=== PATIENT | female | born 1985 | race Caucasian/White ===

== ENCOUNTER → 2017-07-22 | Outpatient (CLI) | payer BC ==
--- NOTE | 2017-07-22 16:11 | CT ---
EXAMINATION TYPE: CT sinus wo con DATE OF EXAM: 07/22/2017 COMPARISON: CT facial bones March 10, 2011. HISTORY: chronic sinusitis/pressure. Pain in forehead and cheek per patient. CT DLP: 693 mGycm. Automated Exposure Control for Dose Reduction was Utilized. TECHNIQUE: CT scan of the sinuses is performed without contrast, axial images are obtained, coronal r eformatted images are also reviewed. FINDINGS: The paranasal sinuses including the frontal, ethmoid, sphenoid, and maxillary sinuses bila terally are well-aerated without abnormal opacification. The ostiomeatal complex is patent bilateral ly on the coronal images. Nasal septum remains deviated to left of midline. Visualized portion of mastoid air cells show no abnormal opacification. The globes are intact bilate rally. IMPRESSION: The sinuses are clear on current study and the ostiomeatal complex is patent bilaterally.
== END | disposition home or self-care (01) ==
LOC: RADCTMAIN 15:22
PROVIDERS: ATTEND Family Medicine
DX: J32.9 Chronic sinusitis, unspecified (principal)
CPT/HCPCS: 70486

== ENCOUNTER → 2018-02-25 | Outpatient (CLI) | payer BC | END | disposition home or self-care (01) | LOC: LABWHC1 11:04 | PROVIDERS: ATTEND Otolaryngology | DX: J30.89 Other allergic rhinitis (principal) | CPT/HCPCS: 36415; 86001 ==

== ENCOUNTER → 2021-01-09 | Outpatient (CLI) | payer BC ==
--- NOTE | 2021-01-11 11:21 | MM ---
Reason for exam: screening (asymptomatic). Baseline mammogram. History: Family history of breast cancer in maternal aunt at age 70. Took hormonal contraceptives for 3 years. Physical Findings: Nurse did not find any significant physical abnormalities on exam. MG 3D Screening Mammo W/Cad Bilateral CC, MLO, and XCCL view(s) were taken. The breast tissue is heterogeneously dense. This may lower the sensitivity of mammography. ASSESSMENT: Negative, BI-RAD 1 RECOMMENDATION: Routine screening mammogram of both breasts in 1 year.
== END | disposition home or self-care (01) ==
LOC: RADMAMWWP 07:07
PROVIDERS: ATTEND Obstetrics & Gynecology
DX: Z12.31 Encounter for screening mammogram for malignant neoplasm of breast (principal); Z80.3 Family history of malignant neoplasm of breast
CPT/HCPCS: 77063; 77067

== ENCOUNTER → 2021-02-06 | Outpatient (CLI) | payer BC ==
[2021-02-06 15:43] LABS: Basophils % (A) 1 %; Eosinophils # (A) 0.2 k/uL (0-0.7); Eosinophils % (A) 7 %; HCT 38.3 % (34.0-46.0); Lymphocytes # (A) 0.3 k/uL (1.0-4.8); Lymphocytes % (A) 10 %; MCH 30.4 pg (25.0-35.0); MCHC 34.1 g/dL (31.0-37.0); MCV 89.2 fL (80.0-100.0); Mean Platelet Volume 7.5; Monocytes # (A) 0.3 k/uL (0-1.0); Monocytes % (A) 9 %; Neutrophils # (A) 2.4 k/uL (1.3-7.7); Neutrophils % (A) 71 %; Platelet Count 208 k/uL (150-450); RBC 4.29 m/uL (3.80-5.40); RDW 12.9 % (11.5-15.5); WBC 3.4 k/uL (3.8-10.6)
== END | disposition home or self-care (01) ==
LOC: LABPAT 14:47
PROVIDERS: ATTEND Obstetrics & Gynecology
DX: Z01.812 Encounter for preprocedural laboratory examination (principal); N94.6 Dysmenorrhea, unspecified; N92.0 Excessive and frequent menstruation with regular cycle
CPT/HCPCS: 36415; 85025

== ENCOUNTER 2021-02-11 05:42 | Day surgery (SDC) | payer BC ==
[2021-02-07 14:24] VITALS: BMI 23.3
[~2021-02-11 05:42] MED LIST: Pre Op ABX Message 1 EACH MISC MISCELLANE ONE
[2021-02-11] MEDS ORDERED: LIDOCAINE 1% (10MG/ML) FOR IV START INTRADERMA PRN (05:43)
[2021-02-11] MEDS ORDERED: LACTATED RINGERS 1,000 ML IV SCH (05:43)
[2021-02-11] MEDS ORDERED: MIDAZOLAM 2 MG/2 ML VIAL IV PRN (05:43)
[2021-02-11] MEDS ORDERED: DEXAMETHASONE SOD PHOSPHATE 4 MG/ML 1 ML VIAL IV ONE (05:43)
[2021-02-11] MEDS ORDERED: ONDANSETRON 4 MG/2 ML VIAL IVP ONE (05:43)
[2021-02-11] MEDS ORDERED: PROPOFOL 10 MG/ML 20 ML VIAL IV ONE (06:55)
[2021-02-11] MEDS ORDERED: LIDOCAINE 1% INJ 10MG/ML (20 ML MDV) ONE (06:55)
[2021-02-11] MEDS ORDERED: KETOROLAC 15 MG/ML 1 ML VIAL ONE (06:55)
[2021-02-11 07:33] VITALS: TEMP 97.9
--- NOTE | 2021-02-11 07:36 | P.OP ---
Date of Procedure: 02/11/21 Preoperative Diagnosis: Dysmenorrhea, hypermenorrhea. Postoperative Diagnosis: Same Procedure(s) Performed: Hysteroscopy, D&C, NovaSure endometrial ablation. Anesthesia: EMILIANOA Surgeon: Brigida Haque Estimated Blood Loss (ml): 20 IV fluids (ml): 300 Urine output (ml): 200 Pathology: none sent Condition: stable Description of Procedure: Patient is brought to the operating suite where a general anesthesia is administered without difficulty per the anesthesia staff. She's placed in the dorsal lithotomy position. The appropriate timeout is performed to assure proper patient procedural identification. Urine hCG is negative. Antibiotics are not deemed necessary. Bladder is drained for approximately 200 mL of clear yellow urine and the perineal body is prepped and draped in the usual sterile fashion. Examination under anesthesia reveals a small retroverted uterus, negative adnexa bilaterally. Weighted speculum was placed into the vagina. Anterior lip of the cervix is grasped with a double-tooth tenaculum. Cervix sounds to a depth of 9 cm, cervix is 3 cm long, retroverted position. Cervix was gently and systematically dilated using Hanks dilators. The hysteroscope was placed and fluid is infused. The cavity is noted to contain a large amount of shaggy tissue, patient is on her menses. This is consistent with menstrual tissue. Hysteroscope was removed. A sharp medium curet is used to remove this tissue via gentle curettage to assure better application of the instrument. Endometrial sampling was done in the office and is negative. Tissue was not sent to pathology. At this time the NovaSure wand is placed and seated. Uterine length of 6.0 cm, width of 3.8 cm is chosen. The machine is properly calibrated and enabled. For 39 seconds and a power of 136 W the procedure is carried out. When it is completed the wand is removed. Hysteroscope was once again placed and the cavity appears to be very thoroughly and uniformly cauterized. Anterior lip of the cervix is clean and dry. All sponge needle and instrument counts are correct. Patient is brought back to recovery room in very good condition with stable vital signs including a blood pressure of 96/54, pulse 69, 99% O2 saturation. Toradol is given prior to her l eaving the operative room. To follow-up with me in the office in 2 weeks.
[2021-02-11] MEDS: HYDROmorphone 0.5 MG/0.5 ML SYRINGE IVP PRN ×2 (07:37→07:48)
[2021-02-11] MEDS ORDERED: LACTATED RINGERS 1,000 ML IV ONE (07:59)
[2021-02-11 08:13] VITALS: RESP 16
[2021-02-11 09:32] VITALS: BP 107/65; PULSE 74
== END 2021-02-11 10:27 | disposition home or self-care (01) ==
LOC: OR 05:42
PROVIDERS: ATTEND Obstetrics & Gynecology
DX: N94.6 Dysmenorrhea, unspecified (principal); N92.0 Excessive and frequent menstruation with regular cycle; E03.9 Hypothyroidism, unspecified; Z88.8 Allergy status to other drugs, medicaments and biological substances; Z91.040 Latex allergy status; I25.2 Old myocardial infarction; I05.9 Rheumatic mitral valve disease, unspecified
CPT/HCPCS: 81025; 58563; J1100; J2405; J2001; J1885; J2704; J1170

== ENCOUNTER → 2021-03-01 | Outpatient (CLI) | payer BC ==
[2021-03-01 15:05] LABS: Basophils # (A) 0.07 X 10*3/uL (0.00-0.10); Basophils % (A) 1.1 %; Eosinophils # (A) 0.11 X 10*3/uL (0.04-0.35); Eosinophils % (A) 1.8 %; HCT 43.5 % (37.2-46.3); HGB 13.7 g/dL (12.0-15.0); Lymphocytes # (A) 1.56 X 10*3/uL (0.90-5.00); Lymphocytes % (A) 25.3 %; MCH 29.3 pg (27.0-32.0); MCHC 31.5 g/dL (32.0-37.0); MCV 92.9 fL (80.0-97.0); Mean Platelet Volume 10.4 fL (9.5-12.2); Monocytes # (A) 0.61 X 10*3/uL (0.20-1.00); Monocytes % (A) 9.9 %; Neutrophils # (A) 3.79 X 10*3/uL (1.80-7.70); Neutrophils % (A) 61.6 %; Platelet Count 298 X 10*3/uL (140-440); RBC 4.68 X 10*6/uL (4.10-5.20); RDW 13.3 % (11.5-14.5); WBC 6.16 X 10*3/uL (4.50-10.00)
[2021-03-01 16:16] LABS: Hemoglobin A1C 4.8 % (4.0-6.0)
[2021-03-01 19:25] LABS: Albumin/Globulin Ratio 1.67 (1.60-3.17); Anion Gap 8.4 mmol/L (4.00-12.00); BUN/Creat Ratio 18.89 Ratio (12.00-20.00); Calcium 8.8 mg/dL (8.7-10.3); Carbon Dioxide 22.6 mmol/L (21.6-31.8); Chol/HDL Ratio 2.56; Globulin 2.4 g/dL (1.6-3.3); LDL Cholesterol,Calculated 70.8 mg/dL (0.0-131.0); Non-African American GFR(CKD) 82.8 (60.0-200.0); Potassium 4.3 mmol/L (3.5-5.5); Total Bilirubin 0.7 mg/dL (0.2-1.2); Total Protein 6.4 g/dL (6.2-8.2); VLDL Calculation 10.2 mg/dL (5.00-40.00)
[2021-03-01 19:34] LABS: Ferritin 27.5 ng/mL (10.0-291.0)
== END | disposition home or self-care (01) ==
LOC: LABWHC1 09:07
PROVIDERS: ATTEND Nurse Practitioner
DX: Z00.00 Encounter for general adult medical examination without abnormal findings (principal); T78.40XA Allergy, unspecified, initial encounter; N94.6 Dysmenorrhea, unspecified; J01.90 Acute sinusitis, unspecified; I25.810 Atherosclerosis of coronary artery bypass graft(s) without angina pectoris; Z91.018 Allergy to other foods; Z91.09 Other allergy status, other than to drugs and biological substances
CPT/HCPCS: 36415; 80053; 80061; 82306; 82728; 83036; 85025; 86003

== ENCOUNTER → 2023-01-20 | Outpatient (CLI) | payer BC ==
--- NOTE | 2023-01-21 08:31 | MM ---
Reason for Exam: Screening (asymptomatic). Last mammogram was performed 2 year(s) and 0 month(s) ago. Patient History: Menarche at age 13. First Full-Term at age 28. Patient used Hormonal Contraceptives for 3 years. Maternal aunt had breast cancer, age 70. Last menstrual period: 01/05/2023 Risk Values: Candace 5 year model risk: 0.4%. NCI Lifetime model risk: 11.2%. Prior Study Comparison: 01/09/2021 Bilateral Screening Mammogram, [facility]. Tissue Density: The breast tissue is extremely dense which could obscure a lesion on mammography. Findings: Analyzed By CAD. There is no suspicious group of microcalcifications or new suspicious mass in either breast. Overall Assessment: Negative, BI-RAD 1 Management: Screening Mammogram of both breasts in 1 year. A clinical breast exam by your physician is recommended on an annual basis and results should be correlated with mammographic findings. Note on Candace scores and lifetime risk: 1. A Candace score greater than 3% is considered moderate risk. If this is the case, consider specialist referral to assess eligibility for a risk reducing agent. If overall lifetime risk for the development of breast cancer is 20% or higher, the patient may qualify for future screening with alternating mammogram and breast MRI. Electronically signed and approved by: Duran Najera D.O.
== END | disposition home or self-care (01) ==
LOC: RADMAMWWP 08:36
PROVIDERS: ATTEND Obstetrics & Gynecology
DX: Z12.31 Encounter for screening mammogram for malignant neoplasm of breast (principal); Z80.3 Family history of malignant neoplasm of breast
CPT/HCPCS: 77063; 77067

== ENCOUNTER → 2023-08-21 | Outpatient (CLI) | payer BC ==
[2023-08-21 23:28] LABS: Alternaria alternata IgE <0.10 kU/L; Aspergillus fumagatus IgE <0.10 kU/L; Cat Epith & Dander IgE <0.10 kU/L; Dog Dander IgE <0.10 kU/L; Egg White IgE <0.10 kU/L; Maple (Box Elder) IgE <0.10 kU/L; Oak IgE <0.10 kU/L; Peanut IgE <0.10 kU/L; Ragweed,Common IgE <0.10 kU/L; Soybean IgE <0.10 kU/L
[2023-08-22 01:13] LABS: Dermato. farinae IgE <0.10 kU/L
[2023-08-22 01:18] LABS: Cladosporian herbarum IgE <0.10 kU/L
[2023-08-22 01:33] LABS: Birch IgE <0.10 kU/L; Cockroach IgE <0.10 kU/L
== END | disposition home or self-care (01) ==
LOC: LABWHC1 12:04
PROVIDERS: ATTEND Otolaryngology
DX: J30.89 Other allergic rhinitis (principal)
CPT/HCPCS: 36415; 82785; 86001; 86003

== ENCOUNTER → 2023-11-05 | Outpatient (CLI) | payer BC ==
[2023-11-05 15:29] LABS: Basophils # (A) 0.06 X 10*3/uL (0.00-0.10); Eosinophils % (A) 1.7 %; HCT 44.8 % (37.2-46.3); HGB 14.6 g/dL (12.0-15.0); Lymphocytes # (A) 1.57 X 10*3/uL (0.90-5.00); Lymphocytes % (A) 26.7 %; MCH 29.6 pg (27.0-32.0); MCHC 32.6 g/dL (32.0-37.0); MCV 90.9 FL (80.0-97.0); Mean Platelet Volume 10.3 FL (9.5-12.2); Monocytes # (A) 0.55 X 10*3/uL (0.20-1.00); Monocytes % (A) 9.4 %; NRBC Per 100 WBC 0 X 10*3/uL (0.00-0.01); Neutrophils # (A) 3.59 X 10*3/uL (1.80-7.70); Platelet Count 283 X 10*3/uL (140-440); RBC 4.93 X 10*6/uL (4.10-5.20); RDW 12.8 % (11.5-14.5); WBC 5.88 X 10*3/uL (4.50-10.00)
[2023-11-05 16:13] LABS: ALT 13 U/L (8-44); AST 11 U/L (13-35); Albumin 4.3 g/dL (3.8-4.9); Albumin/Globulin Ratio 1.79 Ratio (1.60-3.17); Alkaline Phosphatase 58 U/L (41-126); BUN/Creat Ratio 16.56 Ratio (12.00-20.00); Blood Urea Nitrogen 14.9 mg/dL (9.0-27.0); Calcium 9.2 mg/dL (8.7-10.3); Carbon Dioxide 22.4 mmol/L (21.6-31.8); Chloride 106 mmol/L (96-109); Chol/HDL Ratio 2.43 Ratio; Globulin 2.4 g/dL (1.6-3.3); Glucose 87 mg/dL (70-110); LDL Cholesterol,Calculated 81.6 mg/dL (0.0-131.0); Potassium 4.5 mmol/L (3.5-5.5); Sodium 140 mmol/L (135-145); T4, Free (Free Thyroxine) 1.27 ng/dL (0.80-1.80); Total Bilirubin 0.4 mg/dL (0.3-1.2); Total Protein 6.7 g/dL (6.2-8.2); VLDL Calculation 10.32 mg/dL (5.00-40.00)
== END | disposition home or self-care (01) ==
LOC: LABWHC1 08:02
PROVIDERS: ATTEND Family Medicine
DX: Z00.00 Encounter for general adult medical examination without abnormal findings (principal); Q24.9 Congenital malformation of heart, unspecified; R53.81 Other malaise; R42 Dizziness and giddiness; Z86.2 Personal history of diseases of the blood and blood-forming organs and certain disorders involving the immune mechanism
CPT/HCPCS: 36415; 80053; 80061; 82607; 82652; 82746; 84439; 84443; 85025

== ENCOUNTER → 2024-09-28 | Outpatient (CLI) | payer BC ==
--- NOTE | 2024-09-28 08:52 | MM ---
Reason for Exam: Screening (asymptomatic). Last mammogram was performed 1 year(s) and 9 month(s) ago. Patient History: Menarche at age 13. First Full-Term at age 28. Patient used Hormonal Contraceptives for 3 years. Maternal aunt had breast cancer, age 70. Last menstrual period: 09/01/2024 Risk Values: Candace 5 year model risk: 0.5%. NCI Lifetime model risk: 11.2%. Prior Study Comparison: 01/09/2021 Bilateral Screening Mammogram, [facility]. 01/20/2023 Bilateral MG 3D screening mammo w/cad, [facility]. Tissue Density: The breasts are heterogeneously dense, which may obscure small masses. Findings: Analyzed By CAD. Prominent rounded density projecting over the lower right pectoralis major not clearly seen previously. Possible accessory tissue pulled into the field of view. Further evaluation recommended. Otherwise, no significant change. Overall Assessment: Incomplete: need additional imaging evaluation, BI-RAD 0 Management: Special View Mammogram of the right breast. [facility] will attempt to contact patient to return for supplemental views and ultrasound if indicated. [facility], , 09/28/2024 8:50 AM. Electronically signed and approved by: Gunnar Jacinto M.D. Radiologist
== END | disposition home or self-care (01) ==
LOC: RADMAMWWP 06:56
PROVIDERS: ATTEND Obstetrics & Gynecology
DX: Z12.31 Encounter for screening mammogram for malignant neoplasm of breast (principal); R92.333 Mammographic heterogeneous density, bilateral breasts; Z80.3 Family history of malignant neoplasm of breast; Z92.0 Personal history of contraception
CPT/HCPCS: 77063; 77067

== ENCOUNTER → 2024-09-29 | Outpatient (CLI) | payer BC ==
--- NOTE | 2024-09-29 11:30 | MM ---
Reason for Exam: Additional evaluation requested from abnormal screening. Last screening mammogram was performed less than 1 month ago. Patient History: Menarche at age 13. First Full-Term at age 28. Patient used Hormonal Contraceptives for 3 years. Maternal aunt had breast cancer, age 70. Risk Values: Candace 5 year model risk: 0.5%. NCI Lifetime model risk: 11.2%. Prior Study Comparison: 01/09/2021 Bilateral Screening Mammogram, [facility]. 01/20/2023 Bilateral MG 3D screening mammo w/cad, [facility]. 09/28/2024 Bilateral MG 3D screening mammo w/cad, [facility]. Tissue Density: Right: The breasts are heterogeneously dense, which may obscure small masses. Findings: Analyzed By CAD. Persistent 4.5 cm rounded density projecting over the pectoralis far posteriorly. On tomographic images, it may be located more superiorly are medially rather than in the axilla. Etiology unclear. Possible interval development of some accessory breast tissue. Overall Assessment: Incomplete: need additional imaging evaluation, BI-RAD 0 Management: Diagnostic Breast Ultrasound of the right breast. [facility], , 09/29/2024 11:27 AM. Electronically signed and approved by: Gunnar Jacinto M.D. Radiologist
--- NOTE | 2024-09-29 12:18 | USB ---
Reason for Exam: Additional evaluation requested from abnormal screening. Patient History: Menarche at age 13. First Full-Term at age 28. Patient used Hormonal Contraceptives for 3 years. Maternal aunt had breast cancer, age 70. Risk Values: Candace 5 year model risk: 0.5%. NCI Lifetime model risk: 11.2%. Technique: Method: Targeted. Doppler: Color. Patient Position: Supine. Prior Study Comparison: 01/09/2021 Bilateral Screening Mammogram, [facility]. 01/20/2023 Bilateral MG 3D screening mammo w/cad, [facility]. 09/28/2024 Bilateral MG 3D screening mammo w/cad, [facility]. Findings: The upper section of the breast of the right breast, the periareolar of the right breast, the axilla of the right breast and the retroareolar of the right breast were scanned. Targeted ultrasound superior half of the right breast from 9:00 to 3:00 including scanning of the subareolar region of the axilla. Dense tissue is present throughout. There is an additional dense patch of tissue noted at 12:00, 12 cm from the nipple measuring 4.6 x 4.5 x 1.0 cm, just under the clavicle. Possible mammographic correlate. No other solid or cystic lesion or axillary adenopathy. Overall Assessment: Probably benign, BI-RAD 3 Management: Diagnostic Mammogram of the right breast. for a new area of 4.5 cm posterior density that may correspond to development of accessory breast tissue. A clinical breast exam by your physician is recommended on an annual basis and results should be correlated with mammographic findings. This exam should not preclude additional follow-up of suspicious palpable abnormalities. Results were given to the patient verbally at the time of exam. [facility], , 09/29/2024 12:16 PM. Electronically signed and approved by: Gunnar Jacinto M.D. Radiologist
== END | disposition home or self-care (01) ==
LOC: RADMAMWWP 10:51
PROVIDERS: ATTEND Obstetrics & Gynecology
DX: R92.8 Other abnormal and inconclusive findings on diagnostic imaging of breast (principal); R92.333 Mammographic heterogeneous density, bilateral breasts; Z80.3 Family history of malignant neoplasm of breast; Z92.0 Personal history of contraception
CPT/HCPCS: 77061; 77065